=== PATIENT | male | born 1955 | race Caucasian/White ===

== ENCOUNTER 2019-01-09 09:21 | Outpatient (CLI) | payer BC ==
--- NOTE | 2019-01-09 09:53 | RAD ---
XR Knee Rt 4 View STANDARD HISTORY: Sprain of medial collateral ligament of right knee. Right knee pain FINDINGS: No fracture or dislocation is identified. Mild degenerative changes are present.
== END 2019-01-09 09:22 | disposition home or self-care (01) ==
LOC: SCSRAD 09:21
PROVIDERS: ATTEND Family Medicine
DX: M25.561 Pain in right knee (principal); M17.11 Unilateral primary osteoarthritis, right knee

== ENCOUNTER 2019-01-31 14:27 | Outpatient (CLI) | payer BC ==
--- NOTE | 2019-01-31 15:55 | MRI ---
MRI OF THE RIGHT KNEE WITHOUT CONTRAST: INDICATION: History of MCL sprain without trauma. COMPARISON: MRI knee radiograph dated January 09, 2019. FINDINGS: There is a subchondral insufficiency fracture involving the lateral femoral condyle on image 18 of se karin 5. A similar-appearing subchondral insufficiency fracture is seen involving the medial femoral condyle centrally on image 18 of series 7. There is a horizontally oriented tear involving the body and posterior horn of the medial meniscus. The lateral meniscus demonstrates some central free edge fraying along the lateral meniscal body. The ACL, PCL, MCL, and LCLC are intact. Extensor mechanism is intact. There are small marginal osteophytes affecting all major compartments of the right knee. There is moderate chondrosis involving the femorotibial compartments. There is a moderate-sized se mimembranosus-medial gastrocnemius popliteal cyst. IMPRESSION: 1. Subchondral insufficiency fractures involving the medial and lateral femoral condyles with underl mariia subchondral edema. The extent of the reactive subchondral edema is much greater medially. 2. Mild osteoarthrosis of the right knee. 3. Medial meniscal tear. Mild central free edge fraying of the lateral meniscal body. 4. Anterior cruciate ligament, posterior cruciate ligament, medial collateral ligament, LCLC, and ex tensor mechanism are intact. 5. Moderate-sized popliteal cyst. POS: [facility]
== END 2019-01-31 14:28 | disposition home or self-care (01) ==
LOC: BICMRI 14:27
PROVIDERS: ATTEND Family Medicine
DX: S83.411D Sprain of medial collateral ligament of right knee, subsequent encounter (principal); M17.11 Unilateral primary osteoarthritis, right knee; M71.21 Synovial cyst of popliteal space [Baker], right knee; S83.241A Other tear of medial meniscus, current injury, right knee, initial encounter; M84.48XA Pathological fracture, other site, initial encounter for fracture